=== PATIENT | male | born 1985 | race Caucasian/White ===

== ENCOUNTER 2023-03-07 18:34 | Emergency (ER) | payer SELFPAY ==
[~2023-03-07] VITALS: Ht 190.5 cm; Wt 90.0 kg
[2023-03-07 18:41] VITALS: BP 159/105; PULSE 95; RESP 18; TEMP 98.2; O2SAT 98
--- NOTE | 2023-03-07 18:58 | NUR ---
PT UNCOOPERATIVE DURING ASSESSMENT. REFUSING TX OR EXAMINATION
--- NOTE | 2023-03-07 19:11 | NUR ---
Attempted to provide care to patient and clean visible wound to left chest wall prior to discharge. Patient denied and stated "i just want to go to penitentiary".
== END 2023-03-07 19:22 ==
LOC: ER 18:35
DX: S20.312A Abrasion of left front wall of thorax, initial encounter (principal); X58.XXXA Exposure to other specified factors, initial encounter; Y93.89 Activity, other specified; Y92.89 Other specified places as the place of occurrence of the external cause; Y99.8 Other external cause status
CPT/HCPCS: 99283